=== PATIENT | female | born 1965 ===

== ENCOUNTER 2020-08-25 18:44 | Emergency (ER) | payer BC ==
[~2020-08-25] VITALS: Ht 157.5 cm; Wt 103.6 kg
[~2020-08-25 18:44] MED LIST: FLEXERIL 1010 MG/TAB PO; GLUCOPHAGE1000 MG PO; LIPITOR 10MG10 MG PO; MOTRIN 800800 MG/TAB PO; NEURONTIN300 MG/CAP PO; NORCO 325 MG-7.1 TAB PO; PRINZIDE 12.5 M1 TAB PO; ULTRAM 50MG TAB50 MG PO
[2020-08-25 18:57] VITALS: TEMP 97.7
[2020-08-25 20:30] VITALS: BP 141/89; PULSE 87
== END 2020-08-25 20:30 | disposition home or self-care (01) ==
LOC: COL.ER 18:44
DX: M79.672 Pain in left foot (principal); E11.9 Type 2 diabetes mellitus without complications; Z79.84 Long term (current) use of oral hypoglycemic drugs
CPT/HCPCS: J1650; J1885

== ENCOUNTER → 2020-08-27 | Outpatient (CLI) | payer BC | LOC: COL.VAS 08:31 | DX: M79.89 Other specified soft tissue disorders (principal); M79.662 Pain in left lower leg ==

== ENCOUNTER 2020-10-03 19:14 | Emergency (ER) | payer BC ==
[~2020-10-03] VITALS: Ht 157.5 cm; Wt 98.6 kg
[2020-10-03 19:30] VITALS: TEMP 100.3
[2020-10-03 20:17] LABS: BASO % 0.4 % (0.0-2.0); EOS # 0.1 (0.0-0.7); EOS % 1.1 % (0-4.0); GRAN # 3.4 (1.4-6.5); GRAN % 62.6 % (42.2-75.2); HEMATOCRIT 38.2 % (37.0-47.0); HEMOGLOBIN 12.4 g/dl (12.5-16.0); LYMPH # 1.6 (1.2-3.4); LYMPH % 29.8 % (20.0-51.0); MEAN CELL VOLUME 86 fl (80.0-100.0); MEAN CORPUSCULAR HEMOGLOBIN 28 pg (27.0-31.0); MEAN CORPUSCULAR HGB CONC 33 g/dl (33.0-37.0); MEAN PLATELET VOLUME 10.3 fl (7.4-10.4); MONO # 0.3 (0.1-0.6); MONO % 5.7 % (1.7-9.3); PLATELET COUNT 228 K/mm3 (130-400); RED BLOOD COUNT 4.43 M/mm3 (4.10-5.30); REDCELL DISTRIBUTION WIDTH-CV 12.2 % (11.5-14.5)
[2020-10-03 20:28] LABS: ALANINE AMINOTRANSFERASE 30 U/L (4-34); ALKALINE PHOSPHATASE 77 U/L (50-136); ANION GAP 11 mmol/L (7-16); AST,SGOT 33 U/L (15-37); BILIRUBIN,TOTAL 0.2 mg/dL (0.0-1.0); BLOOD UREA NITROGEN 12 mg/dL (7-17); CARBON DIOXIDE 27 mmol/L (22-30); CHLORIDE 99 mmol/L (98-107); CREATININE, serum 0.52 (0.52-1.25); GLUCOSE 205 mg/dL (74-106); LIPASE 104 U/L (23-300); POTASSIUM 3.4 mmol/L (3.4-5.0); SODIUM 137 mmol/L (137-145)
[2020-10-03 20:43] LABS: TROPONIN-I < 0.012 ng/mL (0.000-0.035)
[2020-10-03 21:06] LABS: PARTIAL THROMBOPLASTIN TIME 28.1 SECONDS (26.0-37.0)
[2020-10-04] MEDS ORDERED: AMOXICILLIN 8751 TAB PO (00:02)
[2020-10-04] MEDS ORDERED: TYLENOL 325MG325 MG PO (00:02)
[2020-10-04] MEDS ORDERED: ZITHROMAX Z PA250 MG PO (00:02)
[2020-10-04] MEDS ORDERED: DECADRON6 MG PO (00:02)
[2020-10-04 00:13] VITALS: BP 144/83; PULSE 86
== END 2020-10-04 00:13 | disposition home or self-care (01) ==
LOC: COL.ER 19:14
PROVIDERS: Emergency Medicine
DX: U07.1 COVID-19 (principal); J12.82 Pneumonia due to coronavirus disease 2019; I10 Essential (primary) hypertension; E11.9 Type 2 diabetes mellitus without complications; E78.5 Hyperlipidemia, unspecified; Z79.84 Long term (current) use of oral hypoglycemic drugs; Z88.6 Allergy status to analgesic agent
CPT/HCPCS: J2270; J2405; Q9967

== ENCOUNTER 2020-10-05 18:08 | Emergency (ER) | payer BC ==
[~2020-10-05] VITALS: Ht 157.5 cm; Wt 79.1 kg
[~2020-10-05 18:08] MED LIST changes: +AMOXICILLIN 8751 TAB PO; +DECADRON6 MG PO; +TYLENOL 325MG325 MG PO; +ZITHROMAX Z PA250 MG PO
[2020-10-05 18:55] LABS: COLLECTION METHOD CLEAN CATCH
[2020-10-05 19:06] LABS: PH 7 (5-8); SQUAMOUS EPITHELIAL 0-2 /hpf; URINE APPEARANCE Clear; URINE BACTERIA None Seen /hpf; URINE BILIRUBIN Negative (NEGATIVE); URINE BLOOD Negative (NEGATIVE); URINE COLOR Straw; URINE GLUCOSE 3+ (NEGATIVE); URINE KETONE Negative (NEGATIVE); URINE LEUKOCYTE ESTERASE Negative (NEGATIVE); URINE NITRATE Negative (NEGATIVE); URINE PROTEIN(semi-quant) Negative (NEGATIVE); URINE RBC 0-2 /hpf; URINE UROBILINOGEN Negative (NEGATIVE)
[2020-10-05 19:16] LABS: BASO % 0.1 % (0.0-2.0); GRAN # 6.5 (1.4-6.5); GRAN % 78.6 % (42.2-75.2); LYMPH # 1.2 (1.2-3.4); MEAN CELL VOLUME 87 fl (80.0-100.0); MEAN CORPUSCULAR HEMOGLOBIN 28 pg (27.0-31.0); MEAN CORPUSCULAR HGB CONC 32 g/dl (33.0-37.0); MEAN PLATELET VOLUME 10.7 fl (7.4-10.4); MONO # 0.6 (0.1-0.6); MONO % 6.6 % (1.7-9.3); PLATELET COUNT 296 K/mm3 (130-400); RED BLOOD COUNT 4.25 M/mm3 (4.10-5.30); REDCELL DISTRIBUTION WIDTH-CV 12.4 % (11.5-14.5)
[2020-10-05 19:26] LABS: BILIRUBIN,TOTAL 0.1 mg/dL (0.0-1.0); CALCIUM 8.9 mg/dL (8.4-10.2); CREATININE, serum 0.82 (0.52-1.25); TOTAL PROTEIN 7.9 gm/dL (6.4-8.2)
[2020-10-05 20:46] VITALS: BP 133/72; PULSE 72; TEMP 98.3
== END 2020-10-05 20:46 | disposition home or self-care (01) ==
LOC: COL.ER 18:08
PROVIDERS: Family Medicine
DX: U07.1 COVID-19 (principal); J12.82 Pneumonia due to coronavirus disease 2019; N94.6 Dysmenorrhea, unspecified; G89.29 Other chronic pain; M54.9 Dorsalgia, unspecified; M79.672 Pain in left foot; E11.65 Type 2 diabetes mellitus with hyperglycemia; I10 Essential (primary) hypertension; E78.5 Hyperlipidemia, unspecified; Z79.84 Long term (current) use of oral hypoglycemic drugs; Z88.6 Allergy status to analgesic agent
CPT/HCPCS: J1815; J7030